=== PATIENT | female | born 1970 | race Caucasian/White ===

== ENCOUNTER 2022-12-24 21:11 | Emergency (ER) | payer OTHER ==
[2022-12-24] MEDS ORDERED: Lidocaine Viscous Sol 2% 15 ml UD Cup ONE (22:31)
[2022-12-24] MEDS ORDERED: Mag-Al Plus 1200 MG/1200 MG/120 MG/30 ML UDCUP ONE (22:31)
== END 2022-12-24 22:35 | disposition home or self-care (01) ==
LOC: MADERS 21:11
DX: F45.8 Other somatoform disorders (principal); R09.89 Other specified symptoms and signs involving the circulatory and respiratory systems
CPT/HCPCS: 70490; 71046